=== PATIENT | female | born 1975 | race Caucasian/White ===

== ENCOUNTER 2017-04-18 23:40 | Emergency (ER) | payer BC, OTHER ==
[2017-04-19] MEDS ORDERED: Morphine 4 MG/ML Syringe ONE ×2 (00:03→01:11)
[2017-04-19] MEDS ORDERED: Ondansetron 4 MG/2 ML SDV ONE (00:04)
[2017-04-19] MEDS ORDERED: Sodium Chloride 0.9% 1,000 ML ONE (00:04)
[2017-04-19] MEDS ORDERED: Morphine 4 MG/ML Syringe IVPUSH ONE ×2 (00:05→01:05)
[2017-04-19] MEDS ORDERED: Ondansetron 4 MG/2 ML SDV IVPUSH ONE (00:15)
--- NOTE | 2017-04-19 00:16 | EDM.PDOC ---
ED HPI GENERAL MEDICAL PROBLEM - General Chief Complaint: Abdominal Pain Stated Complaint: abdominal pain Time Seen by Provider: 04/19/17 00:09 Source of Information: Reports: Patient History Limitations: Reports: No Limitations - History of Present Illness INITIAL COMMENTS - FREE TEXT/NARRATIVE: 41 YO WF presents to ER with complainants of 1 week history of RUQ abdominal pain. Pt reports she has been under a lot of stress due to a in the family , and has been having increased gastritis unrelieved by protonix. Pt reports tonight after eating her pain became worse with associated nausea without vomiting. Pt denies any fever/chills. Pt denies any dysuria, frequency or urgency. Onset Date: 04/12/17 Duration: Week(s): (1) Location: Reports: Abdomen Severity: Mild Improves with: Reports: None Worsens with: Reports: Eating Associated Symptoms: Reports: Nausea/Vomiting - Related Data Allergies Allergy/AdvReac Type Severity Reaction Status Date / Time ketorolac tromethamine Allergy Hallucinati Verified 04/19/17 00:52 [From Toradol] ons metoclopramide HCl Allergy Hives Verified 04/19/17 00:52 [From Reglan] pregabalin [From Lyrica] Allergy Pain Verified 04/19/17 00:52 terragon Allergy Severe Anaphylactic Uncoded 04/19/17 00:52 Shock Home Meds: Home Meds Aspirin [Aspirin EC] 325 mg PO DAILY 03/20/15 [History] Celecoxib [CeleBREX] 200 mg PO BID 03/20/15 [History] DULoxetine [Cymbalta] 60 mg PO DAILY 03/20/15 [History] Esomeprazole [NexIUM] 22.3 mg PO DAILY 03/20/15 [History] Montelukast [Singulair] 10 mg PO BEDTIME 03/20/15 [History] Vitamine D 50,000 units PO TU 03/20/15 [History] Polyethylene Glycol 3350 [Miralax] 17 gm PO DAILY PRN 03/29/15 [History] Rizatriptan [Maxalt] 10 mg PO DAILY PRN 03/29/15 [History] Albuterol [Ventolin HFA] 2 puff INH Q4H PRN 04/19/15 [History] Cranberry Extract [Cranberry] 2,400 mg PO DAILY 04/19/15 [History] Gabapentin [Neurontin] 200 mg PO QAM 07/11/15 [History] Gabapentin [Neurontin] 300 mg PO BEDTIME 07/11/15 [History] oxyCODONE 5 - 10 mg PO Q4H PRN 11/28/15 [History] Calcium Carbonate [Calcium] 600 mg PO DAILY 04/19/17 [History] Famotidine [Pepcid] 20 mg PO BID #20 tablet 04/19/17 [Rx] Fluticasone/Salmeterol [Advair 250-50 Diskus] 1 puff INH DAILY 04/19/17 [History ] Hydrocodone/Acetaminophen [Hydrocodon-Acetaminophn 10-325] 1 tab PO Q4H PRN #15 tablet 04/19/17 [Rx] Metoprolol Succinate 50 mg PO DAILY 04/19/17 [History] Ondansetron [Zofran ODT] 4 mg PO Q6H PRN #10 tab.dis 04/19/17 [Rx] Past Medical History Cardiovascular History: Reports: Other (See Below) Other Cardiovascular History: current tachycardia,started on friday today is Friday Respiratory History: Reports: Asthma Other Respiratory History: history of pseudomonis Gastrointestinal History: Reports: GERD, Other (See Below) Other Gastrointestinal History: constipation from pain medication in the past Other Genitourinary History: decreased renal function to L kidney with 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 vaginal/rectocele JAZZ SINGER History: Reports: Other Musculoskeletal History: hx scoliosis with multiple back surgeries. fibromyalgia. 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 parsonage polo syndrome Other Neuro History: [place] Polo syndrome Left arm pain and numbness. Endocrine/Metabolic History: Reports: Obesity/BMI 30+, Vitamin D Deficiency Oncologic (Cancer) History: Reports: Breast Other Oncologic History: has had chemo in the past - Past Surgical History Female Surgical History: Reports: Breast Biopsy Social & Family History - Tobacco Use Smoking Status *Q: Never Smoker Second Hand Smoke Exposure: No - Recreational Drug Use Recreational Drug Use: No ED ROS GENERAL - Review of Systems Review Of Systems: See Below Constitutional: Reports: No Symptoms HEENT: Reports: No Symptoms Respiratory: Reports: No Symptoms Cardiovascular: Reports: No Symptoms Endocrine: Reports: No Symptoms GI/Abdominal: Reports: Abdominal Pain (RUQ), Nausea : Reports: No Symptoms Musculoskeletal: Reports: No Symptoms Skin: Reports: No Symptoms Neurological: Reports: No Symptoms Psychiatric: Reports: No Symptoms Hematologic/Lymphatic: Reports: No Symptoms Immunologic: Reports: No Symptoms ED EXAM, GI/ABD - Physical Exam Exam: See Below Exam Limited By: No Limitations General Appearance: Alert, WD/WN, No Apparent Distress Throat/Mouth: Normal Inspection, Normal Lips, Normal Teeth, Normal Gums, Normal Oropharynx, Normal Voice, No Airway Compromise Head: Atraumatic, Normocephalic Neck: Normal Inspection, Supple, Non-Tender, Full Range of Motion Respiratory/Chest: No Respiratory Distress, Lungs Clear, Normal Breath Sounds, No Accessory Muscle Use, Chest Non-Tender Cardiovascular: Normal Peripheral Pulses, Regular Rate, Rhythm, No Edema, No Gallop, No JVD, No Murmur, No Rub GI/Abdominal Exam: Normal Bowel Sounds, Soft, No Organomegaly, No Distention, No Abnormal Bruit, No Mass, Pelvis Stable, Guarding, Tender (RUQ) Back Exam: Normal Inspection, Full Range of Motion, NT Extremities: Normal Inspection, Normal Range of Motion, Non-Tender, Normal Capillary Refill, No Pedal Edema Neurological: Alert, Oriented, CN II-XII Intact, Normal Cognition, Normal Gait, Normal Reflexes, No Motor/Sensory Deficits Psychiatric: Normal Affect, Normal Mood Skin Exam: Warm, Dry, Intact, Normal Color, No Rash Lymphatic: No Adenopathy Course - Orders/Labs/Meds Orders: Active Orders 24 hr Category Date Time Status Peripheral IV Care [RC] . DIRECTED Care 04/19/17 00:17 Ordered Acetaminophen/HYDROcodone [[place] 325-10 MG] Med 04/19/17 00:52 Ordered 1 tab PO Q6H PRN Ondansetron [Zofran ODT] Med 04/19/17 00:52 Ordered 4 mg PO Q6H PRN Sodium Chloride 0.9% @ 999 MLS/HR (1000ml) Med 04/19/17 00:17 Ordered Sodium Chloride 0.9% [Normal Saline] 1,000 ml IV .BOLUS Sodium Chloride 0.9% [Syrex Flush] Med 04/19/17 00:17 Ordered 5 ml FLUSH Q8HR PRN Peripheral IV Insertion Adult [OM.PC] Routine Oth 04/19/17 00:17 Ordered Medication Orders Hydrocodone Bitart/Acetaminophen ([place] 325-10 Mg) 1 tab PO Q6H PRN PRN Reason: Pain Stop: 04/19/17 12:53 Sodium Chloride (Normal Saline) 1,000 mls @ 999 mls/hr IV .BOLUS ONE Stop: 04/19/17 01:17 Last Admin: 04/19/17 00:10 Dose: 999 mls/hr Ondansetron HCl (Zofran Odt) 4 mg PO Q6H PRN PRN Reason: Nausea/Vomiting Stop: 04/19/17 12:53 Sodium Chloride (Syrex Flush) 5 ml FLUSH Q8HR PRN PRN Reason: Keep Vein Open Labs: Laboratory Tests 04/19/17 04/19/17 04/19/17 Range/Units 00:05 00:05 00:35 WBC 8.2 (5.0-10.0) 10^3/uL RBC 4.75 (3.80-5.50) 10^6/uL Hgb 13.6 (12.0-16.0) g/dL Hct 39.7 (37.0-47.0) % MCV 83.5 (82.0-92.0) fL MCH 28.6 (27.0-31.0) pg MCHC 34.2 (32.0-36.0) g/dL RDW 12.4 (11.5-14.5) % Plt Count 305 H (150-300) 10^3/uL MPV 7.7 (7.4-10.4) fL Neut % (Auto) 61.6 (50.0-70.0) % Lymph % (Auto) 28.1 (20.0-40.0) % [place] % (Auto) 6.8 (2.0-8.0) % Eos % (Auto) 3.0 (1.0-3.0) % Baso % (Auto) 0.5 (0.0-1.0) % Neut # (Auto) 5.1 (2.5-7.0) 10^3/uL Lymph # (Auto) 2.3 (1.0-4.0) 10^3/uL [place] # (Auto) 0.6 (0.1-0.8) 10^3/uL Eos # (Auto) 0.2 (0.1-0.3) 10^3/uL Baso # (Auto) 0.0 (0.0-0.1) 10^3/uL Sodium 141 (136-145) mmol/L Potassium 4.0 (3.3-5.3) mmol/L Chloride 104 (98-115) mmol/L Carbon Dioxide 28.2 (21.0-32.0) mmol/L BUN 18 (6-25) mg/dL Creatinine 0.63 (0.51-1.17) mg/dL Est Cr Clr Drug Dosing TNP Estimated GFR (MDRD) > 60 mL/min Glucose 100 (70-110) mg/dL Calcium 9.1 (8.7-10.3) mg/dL Total Bilirubin 0.4 (0.2-1.0) mg/dL AST 21 (15-37) U/L ALT 33 (12-78) U/L Alkaline Phosphatase 70 (46-116) IU/L Total Protein 7.0 (6.4-8.2) g/dL Albumin 3.88 (3.00-4.80) g/dL Lipase 245 (73-393) U/L Specimen Type Urincc Urine Color Light yellow (YELLOW) Urine Appearance Clear (CLEAR) Urine pH 6.5 (5.0-9.0) Ur Specific [place] 1.010 (1.005-1.030) Urine Protein Negative (NEGATIVE) mg/dL Urine Glucose (UA) Negative (NEGATIVE) mg/dL Urine Ketones Negative (NEGATIVE) mg/dL Urine Occult Blood Negative (NEGATIVE) Urine Nitrite Negative (NEGATIVE) Urine Bilirubin Negative (NEGATIVE) Urine Urobilinogen 0.2 (0.2-1.0) E.U./dL Ur Leukocyte Esterase Small H (NEGATIVE) Urine RBC Not seen /HPF Urine WBC 5-10 H /HPF Ur Epithelial Cells Moderate H /LPF Urine Bacteria Rare (NONE TO FEW) /HPF Meds: Medications Generic Name Dose Route Start Last Admin Trade Name Freq PRN Reason Stop Dose Admin Hydrocodone Bitart/Acetaminophen 1 tab 04/19/17 00:52 [place] 325-10 Mg PO 04/19/17 12:53 Q6H PRN Pain Sodium Chloride 1,000 mls @ 999 mls/hr 04/19/17 00:17 04/19/17 00:10 Normal Saline IV 04/19/17 01:17 999 mls/hr .BOLUS ONE Administration Ondansetron HCl 4 mg 04/19/17 00:52 Zofran Odt PO 04/19/17 12:53 Q6H PRN Nausea/Vomiting Sodium Chloride 5 ml 04/19/17 00:17 Syrex Flush FLUSH Q8HR PRN Keep Vein Open Discontinued Medications Generic Name Dose Route Start Last Admin Trade Name Freq PRN Reason Stop Dose Admin Famotidine 20 mg 04/19/17 00:17 04/19/17 00:30 Pepcid IVPUSH 04/19/17 00:18 20 mg ONETIME ONE Administration Sodium Chloride Confirm 04/19/17 00:04 04/19/17 00:27 Normal Saline Administered 04/19/17 00:05 Not Given Dose 1,000 mls @ as directed .ROUTE .STK-MED ONE Morphine Sulfate Confirm 04/19/17 00:03 04/19/17 00:15 Morphine Administered 04/19/17 00:04 4 mg Dose Administration 4 mg .ROUTE .STK-MED ONE Ondansetron HCl Confirm 04/19/17 00:04 04/19/17 00:05 Zofran Administered 04/19/17 00:05 4 mg Dose Administration 4 mg .ROUTE .STK-MED ONE Departure - Departure Time of Disposition: 00:50 Disposition: Home, Self-Care 01 Condition: Good Clinical Impression: Abdominal pain Qualifiers: Abdominal location: right upper quadrant Qualified Code(s): R10.11 - Right upper quadrant pain Gastritis Qualifiers: Gastritis type: unspecified gastritis Chronicity: acute Gastritis bleeding: without bleeding Qualified Code(s): K29.00 - Acute gastritis without bleeding Cholelithiasis Qualifiers: Cholelithiasis location: gallbladder Cholecystitis presence: without cholecystitis Biliary obstruction: without biliary obstruction Qualified Code(s) : K80.20 - Calculus of gallbladder without cholecystitis without obstruction - Discharge Information Prescriptions: Famotidine [Pepcid] 20 mg PO BID #20 tablet Hydrocodone/Acetaminophen [Hydrocodon-Acetaminophn 10-325] 1 tab PO Q4H PRN #15 tablet PRN Reason: Pain Ondansetron [Zofran ODT] 4 mg PO Q6H PRN #10 tab.dis PRN Reason: Vomiting Instructions: Cholelithiasis, Gastritis, Adult, [id number], Abdominal Pain, Adult, [id number] Forms: ED Department Discharge - My Orders Last 24 Hours: My Active Orders 04/19/17 00:17 Peripheral IV Care [RC] . DIRECTED Sodium Chloride 0.9% @ 999 MLS/HR (1000ml) Sodium Chloride 0.9% [Normal Saline] 1,000 ml IV .BOLUS Sodium Chloride 0.9% [Syrex Flush] 5 ml FLUSH Q8HR PRN Peripheral IV Insertion Adult [OM.PC] Routine 04/19/17 00:52 Acetaminophen/HYDROcodone [[place] 325-10 MG] 1 tab PO Q6H PRN Ondansetron [Zofran ODT] 4 mg PO Q6H PRN - Assessment/Plan Last 24 Hours: My Active Orders 04/19/17 00:17 Peripheral IV Care [RC] . DIRECTED Sodium Chloride 0.9% @ 999 MLS/HR (1000ml) Sodium Chloride 0.9% [Normal Saline] 1,000 ml IV .BOLUS Sodium Chloride 0.9% [Syrex Flush] 5 ml FLUSH Q8HR PRN Peripheral IV Insertion Adult [OM.PC] Routine 04/19/17 00:52 Acetaminophen/HYDROcodone [[place] 325-10 MG] 1 tab PO Q6H PRN Ondansetron [Zofran ODT] 4 mg PO Q6H PRN Assessment:: 1. abdominal pain 2. gastritis 3. cholelithiasis Plan: 1. hydrocodone/zofran/pepcid for pain 2. dietary recommendations- low fat, frequent small meals 3. follow up with clinic for RUQ ultrasound 4. return to ER for worsening symptoms
[2017-04-19] MEDS ORDERED: Sodium Chloride 0.9% 5 ML Syringe FLUSH PRN (00:17)
[2017-04-19] MEDS ORDERED: Sodium Chloride 0.9% 1,000 ML IV ONE (00:17)
[2017-04-19] MEDS ORDERED: Famotidine 20 MG/2 ML SDV IVPUSH ONE (00:17)
[2017-04-19 00:47] LABS: CHLORIDE,CL 104 mmol/L (98-115); SODIUM,NA 141 mmol/L (136-145)
[2017-04-19] MEDS ORDERED: Acetaminophen/HYDROcodone 325-10 MG Tab PO PRN (00:52)
[2017-04-19] MEDS ORDERED: Ondansetron 4 MG Tab.DIS PO PRN (00:52)
[2017-04-19 03:15] VITALS: BP 141/96
== END 2017-04-19 01:25 | disposition home or self-care (01) ==
LOC: KA.ED 23:40
DX: K29.00 Acute gastritis without bleeding (principal); K80.20 Calculus of gallbladder without cholecystitis without obstruction; J45.909 Unspecified asthma, uncomplicated; K21.9 Gastro-esophageal reflux disease without esophagitis; E66.9 Obesity, unspecified; Z85.3 Personal history of malignant neoplasm of breast; Z79.82 Long term (current) use of aspirin; Z79.899 Other long term (current) drug therapy; Z88.6 Allergy status to analgesic agent; Z88.8 Allergy status to other drugs, medicaments and biological substances; Z68.32 Body mass index [BMI] 32.0-32.9, adult
CPT/HCPCS: 36415; 80053; 81001; 83690; 85025; 96361; 96374; 96375; 99284; A9270; J2270; J2405; J7030; S0028

== ENCOUNTER 2017-05-14 08:57 | Day surgery (SDC) | payer BC ==
[~2017-05-14 08:57] MED LIST: Lactated Ringers 1,000 ML IV SCH; Sodium Chloride 0.9% 5 ML Syringe FLUSH PRN
[2017-05-14] MEDS ORDERED: Propofol 200 MG/20 ML SDV ONE (09:02)
[2017-05-14] MEDS ORDERED: EPINEPHrine 1:10,000 1 MG/10 ML Syringe ONE (10:02)
[2017-05-14] MEDS ORDERED: Propofol 200 MG/20 ML SDV IV ONE (10:59)
--- NOTE | 2017-05-14 11:19 | PCM.OPNOTE ---
- General Post-Op/Procedure Note Date of Surgery/Procedure: 05/14/17 Operative Procedure(s): Upper GI endoscopy and polypectomy using hot biopsy forceps. Findings: Mild gastritis was observed. Also a few small gastric polyps were observed. Pre Op Diagnosis: Persistent epigastric discomfort radiating to the right upper quadrant. Negative ultrasound Anesthesia Technique: MAC Primary Surgeon: Wendi Marquez Complications: None Condition: Good Free Text/Narrative:: INFORMED CONSENT: Patient is here today for elective upper GI endoscopy. All aspects of this procedure have been discussed with the patient. All possible complications also, including possibility of perforation, infection, pain, bleeding, numbness of the throat, swallowing difficulty and unknown complications. In the event of perforation the patient may need surgical exploration to repair the defect. The patient understands fully well. Patient did not have any further questions for me at the end of my interview. The patient wishes for me to proceed. INSTRUMENT USED: Video gastroscopy ANESTHESIA: [MAC] ASA CLASSIFICATION: [one] PROCEDURE PERFORMED: [upper gastrointestinal endoscopy and polypectomy using hot biopsy forceps] PHARYNX: Normal. ESOPHAGUS: Normal. Proximal: Normal. Middle: Normal. Lower: Normal. GE Junction: Normal at 30 cm STOMACH: Normal. Cardia: Normal. Fundus: Normal. Lesser Curvature: few small polyps were identified. Mild gastritis also was observed. one of the polyps was removed using a hot biopsy forceps. Greater Curvature: Normal. Antrum: mild gastritis at the antrum was observed.. Pylorus: Normal. DUODENUM: Normal. First Part: Normal. Second Part: Normal. Third Part: Normal. RETROFLEXION: Normal. BIOPSY: None. TOLERANCE: Excellent. COMPLICATIONS: None. Few small polyps of the lesser curvature, mild gastritis and antritis was observed.
[2017-05-14] MEDS ORDERED: Lidocaine 2% 5 ML SDV ONE (12:38)
[2017-05-14 13:42] VITALS: BP 118/65
== END 2017-05-14 12:25 | disposition home or self-care (01) ==
LOC: KA.SDS 08:57
PROVIDERS: ATTEND Family Medicine
DX: K31.7 Polyp of stomach and duodenum (principal); I10 Essential (primary) hypertension; J45.909 Unspecified asthma, uncomplicated; E55.9 Vitamin D deficiency, unspecified; E66.9 Obesity, unspecified; K21.9 Gastro-esophageal reflux disease without esophagitis; Z79.82 Long term (current) use of aspirin; Z88.8 Allergy status to other drugs, medicaments and biological substances; Z79.899 Other long term (current) drug therapy; Z91.018 Allergy to other foods; Z68.30 Body mass index [BMI] 30.0-30.9, adult
CPT/HCPCS: 43250; J2704; J7120